=== PATIENT | female | born 1965 | race African-American/Black ===

== ENCOUNTER 2016-10-31 09:10 | Emergency (ER) | payer SELFPAY ==
[~2016-10-31] VITALS: Ht 157.5 cm; Wt 71.0 kg
[2016-10-31 09:12] VITALS: BP 102/73; PULSE 76; RESP 20; TEMP 98.5; O2SAT 98
[2016-10-31] MEDS ORDERED: phenergan w codein PO (09:48)
[2016-10-31] MEDS ORDERED: ZITHTAB PO (09:48)
--- NOTE | 2016-10-31 09:48 | PD ---
HPI Chief Complaint: Cold / Flu Symptoms Time Seen by Provider: 09:30 Travel History International Travel<30 days: No Contact w/Intl Traveler<30days: No Traveled to known affect area: No History of Present Illness HPI 51-year-old female complains of headache, persistent cough, body ache. Patient states that the symptoms started a week ago. Patient states the cough is persistent dry cough. Patient states that the cough is worse at night. Patient states that she had mild aching headache. Patient states that she has throat discomfort. Patient denies any chest pain or shortness of breath. Patient states that she has occasional wheezing. Patient states that she has nausea but no vomiting or diarrhea. Patient denies abdominal pain. Patient states that she has mild body ache. Patient denies any chance of being . PFSH Past Medical History Medical History: Denies Significant Hx Diminished Hearing: No Tetanus Vaccination: Unknown Influenza Vaccination: No ?: Not Past Surgical History Surgical History: No Previous Surgery Social History Alcohol Use: Yes (pt sts occasional) Tobacco Use: No Substance Use: No Allergies-Medications (Allergen,Severity, Reaction): Coded Allergies: Naproxen (Verified Allergy, Severe, Anaphylaxis, 10/31/16) Penicillin (Verified Allergy, Severe, rash, 10/31/16) Reported Meds & Prescriptions Reported Meds & Active Scripts Active No Active Prescriptions or Reported Medications Review of Systems General / Constitutional: No: Fever Eyes: No: Visual changes HENT: No: Headaches Cardiovascular: No: Chest Pain or Discomfort Respiratory: Positive: Cough, No: Shortness of Breath Gastrointestinal: No: Abdominal Pain Genitourinary: No: Dysuria Musculoskeletal: No: Pain Skin: No Rash Neurologic: No: Weakness Psychiatric: No: Depression Endocrine: No: Polydipsia Hematologic/Lymphatic: No: Easy Bruising Physical Exam Narrative GENERAL: Well-nourished, well-developed patient. SKIN: Focused skin assessment warm/dry. HEAD: Normocephalic. EYES: No scleral icterus. No injection or drainage. TM: Clear. Throat: Nonerythematous. NECK: Supple, trachea midline. No JVD or lymphadenopathy. CARDIOVASCULAR: Regular rate and rhythm without murmurs, gallops, or rubs. RESPIRATORY: Breath sounds equal bilaterally. No accessory muscle use. GASTROINTESTINAL: Abdomen soft, non-tender, nondistended. MUSCULOSKELETAL: No cyanosis, or edema. BACK: Nontender without obvious deformity. No CVA tenderness. Data Data Last Documented VS Vital Signs Date Time Temp Pulse Resp B/P Pulse Ox O2 Delivery O2 Flow Rate FiO2 10/31/16 09:25 Room Air 10/31/16 09:12 98.5 76 20 102/73 98 MDM Medical Decision Making Medical Screen Exam Complete: Yes Emergency Medical Condition: Yes Differential Diagnosis Differential diagnosis including viral syndrome, bronchitis, pneumonia, reactive airway disease. Narrative Course 51-year-old female with persistent cough. Diagnosis Primary Impression: Bronchitis Patient Instructions: General Instructions Additional Instructions: Z-Chucho as directed. Tylenol ibuprofen for aching pain. Follow-up with personal physician. Return if worse. Med/Other Pt SpecificInfo: Prescription(s) given Scripts [phenergan w codein] No Conflict Check10 Ml PO Q6HR #120 Prov:Prem Lema MD 10/31/16 Azithromycin (Zithromax Z-Chucho)250 Mg Qfgt630 Mg PO DIRECTED #1 DSPK 500 MG (2 tabs) day 1, then 1 tab days 2-5. Prov:Prem Lema MD 10/31/16 Disposition: 01 DISCHARGE HOME Condition: Stable Prem Lema MD Oct 31, 2016 09:48
== END 2016-10-31 09:59 | disposition home or self-care (01) ==
LOC: PHED 09:10
DX: J40 Bronchitis, not specified as acute or chronic (principal)
CPT/HCPCS: 99283